=== PATIENT | male | born 1945 | race Caucasian/White ===

== ENCOUNTER → 2017-01-24 | Outpatient (CLI) | payer OTHER ==
[~2017-01-24] MED LIST: ASPIRIN325 PO; HYDROCHLOROTHIA25 M2 PO; SIMVASTATIN40 MG PO; VERAPAMIL ER180 M1 PO; WELLBUTRIN XL300 MG PO
== END ==
LOC: RAD 16:47
DX: M25.512 Pain in left shoulder (principal)

== ENCOUNTER → 2018-05-15 | Outpatient (CLI) | payer OTHER | LOC: RAD 09:20 | DX: M47.816 Spondylosis without myelopathy or radiculopathy, lumbar region (principal); M51.36 Other intervertebral disc degeneration, lumbar region; M48.061 Spinal stenosis, lumbar region without neurogenic claudication; I70.0 Atherosclerosis of aorta ==

== ENCOUNTER 2018-06-29 06:08 | Inpatient (IN) | payer OTHER ==
[~2018-06-29] VITALS: Ht 190.5 cm; Wt 122.5 kg
[~2018-06-29 06:08] MED LIST changes: +CENTRUM SILVER1 EAC2 PO; +FISH OIL 1,001000 M2 PO; +NORVASC10 MG PO; +SUPER B-50 COM1 EACH PO; +TURMERIC500 M2 PO
[2018-06-29 09:00] LABS: URINE BILIRUBIN NEGATIVE (Negative); URINE BLOOD TRACE (Negative); URINE CLARITY CLEAR; URINE COLOR YELLOW; URINE GLUCOSE-RANDOM* NEGATIVE (Negative); URINE KETONES NEGATIVE (Negative); URINE LEUKOCYTES-REFLEX NEGATIVE (Negative); URINE NITRITE-REFLEX NEGATIVE (Negative); URINE PROTEIN (DIPSTICK) NEGATIVE (Negative); URINE SPECIFIC GRAVITY 1.025 (1.005-1.035); URINE UROBILINOGEN 0.2 E.U./dl (0.2-1.0)
[2018-06-29 09:00] LABS: HEMATOCRIT 43.3 % (42.0-52.0); HEMOGLOBIN 15.2 gm/dL (14.0-18.0); MCH 32.8 pg (26.0-34.0); MCHC 35.1 g/dL (28.0-37.0); MCV 93.6 fL (80.0-100.0); RBC 4.63 mil/uL (4.50-6.00); RDW 13.1 % (10.5-14.5); WBC 8.9 thou/uL (4.0-11.0)
[2018-06-29 09:07] LABS: ALBUMIN 3.7 g/dL (3.4-5.0); CALCIUM 8.9 mg/dL (8.5-10.1); CREATININE 1.4 mg/dL (0.7-1.3)
[2018-06-29 09:12] LABS: INR 1.1
--- NOTE | 2018-06-29 09:18 | EKG ---
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 : 1945 Requested By: Marino Velez Order Number: [id number] MD: Rashad Chow Measurements Intervals [place] Rate: 78 P: 40 MI: 208 QRS: -24 QRSD: 100 T: 67 QT: 391 QTc: 446 Interpretive Statements Sinus rhythm Borderline left axis deviation Abnormal R-wave progression, late transition Compared to ECG 04/08/2014 08:39:16 No significant changes Electronically Signed On 06-29-2018 9:18:20 CDT by Rashad Chow [email or web address] ��������������������������������������������� <ELECTRONICALLY SIGNED> ���������������������������������������� By: Rashad Chow MD, [facility] ��������������������������������������������� 06/29/18 0918 9 9 Rashad Chow MD, [facility] /EPI
[2018-07-08 11:10] VITALS: BP 144/77
--- NOTE | 2018-07-08 16:01 | O ---
Formerly [facility] [place] [address] OPERATIVE REPORT Name: PAKO RODRIGUEZ Room #: 150-4 ADM IN M.R.#: [id number] Admission: 07/08/18 ������������������ Attend Phys: Marino Velez MD Discharge: ������������������ Date of : 47 Report #: [id number] THIS REPORT FOR: //name// CC: Ro Oscar Velez DATE OF SERVICE: 07/08/2018 PREOPERATIVE DIAGNOSIS: Right knee medial compartment osteoarthritis. POSTOPERATIVE DIAGNOSIS: Right knee medial compartment osteoarthritis. PROCEDURE: Right medial compartment knee arthroplasty with Navio robotic assistance. SURGEON: Marino Velez MD. SAND POLISHER: Josephine Edwards PA-C INDICATION FOR SAND POLISHER: Throughout the case, extensive retraction and manipulation of knee was required. This was afforded to me by my financial services assistant. ANESTHESIA: LMA with an adductor canal block. IMPLANTS: Shen and Nephew size 5 Journey medial compartment femoral component, size 3 tibia, size 9 polyethylene. TOURNIQUET TIME: 61 minutes. ESTIMATED BLOOD LOSS: 25 mL. COMPLICATIONS: None. SPECIMENS: None. CONDITION UPON LEAVING THE OPERATING ROOM: Stable. INDICATIONS FOR PROCEDURE: The patient is a 72-year-old gentleman with severe right knee medial compartment osteoarthritis. He had failed conservative measures for this and after discussion with him, he elected for right unicompartmental knee arthroplasty. DESCRIPTION OF PROCEDURE: Risks, benefits, alternatives and complications were discussed in detail with the patient including but not limited to risk of anesthesia, risk of damage to nerves, arteries, blood vessels, risk for infection, bleeding, risk for continued knee pain, need for reoperation. Formerly [facility] [address] [place] [address] OPERATIVE REPORT Name: PAKO RODRIGUEZ Room #: 150-4 ADM IN M.R.#: [id number] Admission: 07/08/18 ������������������ Attend Phys: Marino Velez MD Discharge: ������������������ Date of : 47 Report #: [id number] Informed consent was obtained from the patient. Right knee was appropriately marked in the preoperative holding area. IV Ancef was given for preoperative antibiotics. He was brought to the operating room and placed in the supine position on the operating room table. LMA anesthesia was induced without complication. Tourniquet was placed on the right thigh. Right lower extremity was prepped and draped in normal sterile fashion. Right lower extremity was exsanguinated, tourniquet was inflated. Tourniquet time was 61 minutes. Standard approach to the medial compartment was made with #10 blade through the skin. Dissection was taken down sharply to the fascia and deep flaps were developed medially and laterally. Fresh #10 blade was used to make a medial parapatellar arthrotomy and the knee was inspected. There was severe medial compartment osteoarthritis. Lateral compartment was well maintained and a grade 2 chondromalacia of the patella. It was decided to proceed with uni-knee arthroplasty. Reference pins were placed in the femur and the tibia and the knee was digitally mapped using the [employer] robotic system. We sized a size 5 femur and a size 3 tibia with a 9 polyethylene. After acceptance of the intraoperative plan, the femoral cut was made with a Navio sandie. Tibial resection was also made with a Navio bur. Remainder of the meniscus was removed with Bovie cautery. A size 3 tibial trial was placed, pinned and drilled. A size 5 femoral trial was placed and then this was then trialed with a size 8 and then a size 9 polyethylene. Size 9 polyethylene demonstrated 1-2 mm of laxity throughout range of motion medially. After this, trial components were removed. Bony ends were thoroughly irrigated with normal saline. A final size 3 tibia, size 5 Journey medial compartment Oxinium component were cemented in place using standard cementation techniques. While the cement cured, a periarticular injection consisting of morphine, ropivacaine, epinephrine and Toradol was placed around the knee joint capsule. After the cement cured, tourniquet was deflated. Hemostasis was obtained with Bovie cautery. A final size 9 polyethylene was placed. The knee was thoroughly irrigated with normal saline. A gram of vancomycin was placed deep in the joint. Fascia was closed with 0 Vicryl, skin was closed with 2-0 Vicryl, 3-0 Monocryl and a MARIANA dressing was applied. The patient tolerated this procedure well and went to the recovery room under care of Anesthesia postoperatively. ��������������������������������������������� <ELECTRONICALLY SIGNED> ���������������������������������������� By: Marino Velez MD ��������������������������������������������� 07/08/18 1601 1413 1428 Marino Velez MD /nt
[2018-07-08 17:18] VITALS: BP 134/68
[2018-07-08 20:13] VITALS: BP 142/65
[2018-07-09 04:20] VITALS: BP 131/70
[2018-07-09 04:53] LABS: HEMATOCRIT 39.4 % (42.0-52.0); HEMOGLOBIN 13.7 gm/dL (14.0-18.0); MCH 32.3 pg (26.0-34.0); MCHC 34.8 g/dL (28.0-37.0); MCV 92.7 fL (80.0-100.0); RBC 4.24 mil/uL (4.50-6.00); RDW 12.9 % (10.5-14.5); WBC 15.8 thou/uL (4.0-11.0)
[2018-07-09 08:33] VITALS: BP 118/66
--- NOTE | 2018-07-09 10:50 | NUR ---
PT A&OX4, AMBULATES WITH STANDBY AND WALKER. IV INTACT IN R HAND. PT NAUSEATED DURING SHIFT REPORT THIS AM. ZOFRAN IV GIVEN, WILL CONT TO MONITOR.
--- NOTE | 2018-07-09 12:41 | NUR ---
ASSESSMENT-PT LIVES AT HOME WITH HIS WHO IS IN GOOD HEALTH AND ABLE TO ASSIST HIM AT HOME. THEY HAVE 3 CHILDREN IN THE AREA THAT CAN ASSIST IF NEEDED. BOTH PT AND DRIVE. PRIOR TO ADMISSION PT HAD BEEN OFF WORK. 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 PT PLANS TO GO FOR OUTPT THERAPY AT [facility]. PT NEEDS A ROLLER WALKER FOR HOME. WILL ASK DC RUG DYER HELPER TO ARRANGE FOR ROLLER WALKER FOR DC.
[2018-07-09] MEDS ORDERED: PERCOCET PO (13:01)
[2018-07-09] MEDS ORDERED: MS CONTIN15 MG PO (13:01)
[2018-07-09] MEDS ORDERED: TRI-BUFFERED A325 M1 PO (13:02)
[2018-07-09] MEDS ORDERED: NEURONTIN 300300 M1 PO (13:02)
--- NOTE | 2018-07-09 13:10 | NUR ---
DISCHARGE PLANNING. PATIENT IN NEED OF ROLLER WALKER FOR HOME USE. CLINICAL INFORMATION, ROLLER WALKER RX AND FACESHEET FAXED TO [facility]. VERIFIED ALL RECEIVED. FINN TO FACILITATE PATIENTS ROLLER WALKER NEEDS AND WILL DELIVER TO PATIENTS BEDSIDE TODAY.
[2018-07-09 13:40] VITALS: BP 118/66
[2018-07-09 13:52] VITALS: BP 118/66
--- NOTE | 2018-07-09 14:07 | NUR ---
DC ORDERS RECEIVED. DC INSTRUCTIONS AND F/U APPOINT REVEIWED WITH PT. SCRIPTS GIVEN TO PT PRIOR TO ADMISSION. IV REMOVED FROM R HAND. PT WAITING FOR WALKER TO ARRIVE HERE AT HOSPITAL PRIOR TO DC.
== END 2018-07-09 15:04 | disposition home or self-care (01) | DRG 470 ==
LOC: PRE 06:08 → TBA 06:08 → 4E 07-08 05:30 → PRE 07-08 08:55 → 4E 07-08 16:43 → ENTRNSPT 07-09 14:47 → 4E 07-09 15:04
PROVIDERS: ADMIT Orthopaedic Surgery
DX: M17.11 Unilateral primary osteoarthritis, right knee (principal); Z79.82 Long term (current) use of aspirin; Z79.899 Other long term (current) drug therapy
CPT/HCPCS: 10783; 50010; 50101; 50415; 50954; 51130; 51225; 53078; 53370; 54118; 56527; 56528; 57095; 57103; 57109; 57110; 57113; 62110; 62900; 70005

== ENCOUNTER 2019-06-25 05:47 | Day surgery (SDC) | payer OTHER ==
[2019-06-25] VITALS (14 sets, daily range): BP systolic 120–139; BP diastolic 70–82
[~2019-06-25] VITALS: Ht 190.5 cm; Wt 121.6 kg
[~2019-06-25 05:47] MED LIST changes: +AMLODIPINE BESY10 MG PO; +ATORVASTATIN CA10 MG PO; +FISH OIL 1,2001 EAC3 PO; +MS CONTIN15 MG PO; +NEURONTIN 300300 M1 PO; +NEURONTIN300 MG PO; +PERCOCET PO; +TRI-BUFFERED A325 M1 PO
[2019-06-25 06:59] LABS: CALCIUM 8.5 mg/dL (8.5-10.1); CREATININE 1.5 mg/dL (0.7-1.3)
[2019-06-25 07:11] LABS: POTASSIUM 3.4 mmol/L (3.5-5.1)
--- NOTE | 2019-06-25 08:07 | EKG ---
[facility] [place] [address] ELECTROCARDIOGRAM REPORT Name: PAKO RODRIGUEZ Room #: [facility].#: [id number] Admission: 06/25/19 Attend Phys: Yaw Mcnally MD Discharge: Date of : 47 Report #: [id number] THIS REPORT FOR: cc: Ro Moore DNP, Mary E. DNP Lundgren, Craig H. 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1945 Requested By: Yaw Mcnally Order Number: [id number] MD: Rashad Chow Measurements Intervals [place] Rate: 73 P: 36 VT: 218 QRS: -17 QRSD: 105 T: 53 QT: 411 QTc: 453 Interpretive Statements Sinus rhythm Borderline prolonged VT interval Compared to ECG 06/29/2018 08:50:38 No significant changes Electronically Signed On 06-25-2019 8:06:27 CLOTHER IN by Rashad Chow [email or web address] <ELECTRONICALLY SIGNED> By: Rashad Chow MD, [facility] 06/25/19805 7 7 Rashad Chow MD, [facility] /EPI
--- NOTE | 2019-06-25 16:28 | NUR ---
Chart reviewed and case discussed with the care team. Tennis Net Maker visited with the pt and his at bedside. He is s/p lumbar lami and currently on bedrest. He is anticipating dc home tomorrow pending his progress. Therapy to eval him in the am. He reports that he was indep with gait and adl's prior to admission. His is supportive and can assist with IADL's and adl's as needed. He may have a used rollar walker if needed at dc. Discussed getting a script from the surgeon should he need a new one at dc over the weekend. Pt and spouse deny any dc needs or concerns. Pt is anticipated to dc home with outpt f/u.
--- NOTE | 2019-06-25 18:24 | NUR ---
Pt came up from revocery room approx 1025. Pt states pain is controlled with the ice pack. Dressing c/d/i. Hemovac drain in place. Pt bedrest until am. Voids in the urinal. IVF infusing. Family at bedside. Call light within reach. Will continue to monitor.
--- NOTE | 2019-06-26 01:10 | NUR ---
PT C/O PAIN ON HIS BACK,MANAGED WITH MED.PT UP WITH SBA TO THE BR.PT IS A FALL RISK BUT PT NOT COMPLIANT WITH FALL PRECAUTIONS.DRSG ON HIS BACK C/D/I WITH HEMOVAC IN PLACE.PT ABLE TO MAKE HIS NEEDS KNOWN.FALL PRECAUTIONS IN PLACE,CALL LIGHT WITHIN REACH.
[2019-06-26 04:20] VITALS: BP 132/66
--- NOTE | 2019-06-26 07:34 | O ---
[facility] [place] [address] OPERATIVE REPORT Name: PAKO RODRIGUEZ Room #: 441-P [facility]#: [id number] Admission: 06/25/19 Attend Phys: Yaw Mcnally MD Discharge: Date of : 47 Report #: [id number] THIS REPORT FOR: cc: Ro Moore DNP, Mary E. DNP Clymer, David J. MD ~ CC: Yaw Moore DATE OF SERVICE: 06/25/2019 PREOPERATIVE DIAGNOSIS: Lumbar spinal stenosis at L3-L4 level. POSTOPERATIVE DIAGNOSIS: Lumbar spinal stenosis at L3-L4 level. PROCEDURE: Decompressive laminectomy for spinal stenosis, L3-L4 levels. SURGEON: Yaw Mcnally MD INDICATIONS: This heavy, deconditioned 73-year-old gentleman has had previous lumbar laminectomy and diskectomy in the distant past. I believe at L4-L5 and L5-S1 levels. Now, he has progressive bilateral leg pain with some numbness and weakness and mild left-sided footdrop. Clinical exam is suggestive of radiculopathy and MRI study reveals rather significant spinal stenosis at the L3-L4 level. We discussed treatment options and elected to go ahead with surgical decompression. DESCRIPTION OF PROCEDURE: The patient was taken to the operating room where he was placed under general anesthesia. Prophylactic intravenous antibiotics were administered. He was turned to the prone position. The low back was meticulously prepped and draped. C-arm was brought into the field to localize the appropriate level. A skin incision was made overlying the L3-L4 level extending distally into the old surgical scar. The dissection was carried through subcutaneous tissues and fascia and the paraspinal muscles were dissected out laterally exposing the lamina of L3 and L4. The spinous process of L3 and L4 were excised. A complete laminectomy at L3 was performed. The laminectomy was extended through most of L4 until the canal seemed to open up nicely. It was also extended proximally up into L2 slightly where the canal also seemed to be widely open. There was some significant canal narrowing in the mid portion. This was related to facet hypertrophy and significant hypertrophy of ligamentum. The disk was found to be bulging, but without disk herniation. I did not feel that a formal diskectomy would be necessary or helpful. A satisfactory decompression was accomplished. C-arm was used to confirm that I was at the appropriate level with a marker at L2 well above the stenosis and another marker at L4 below the area of stenosis. This was confirmed with the radiologist during the procedure. [address] [address] OPERATIVE REPORT Name: PAKO RODRIGUEZ Room #: 441-P REG [facility]#: [id number] Admission: 06/25/19 Attend Phys: Yaw Mcnally MD Discharge: Date of : 46 Report #: [id number] I felt there is a satisfactory decompression of the area of stenosis. There is obviously some facet hypertrophy and some degenerative change above and below this area, which may cause some ongoing back discomfort, but I think the canal seemed to be opened nicely. The dura is intact. The nerve root seemed to be freed up. The wound was copiously irrigated. Good hemostasis was established. A small sheet of Gelfoam and thrombin were placed over the exposed dura. The muscle layer was closed and the fascia layer was closed with #1 Vicryl sutures. A single Hemovac was left in the wound, placing this above the fascia with the tail of the drain extending distally below the fascia to decompress any postoperative hematoma in this region. The subcutaneous tissues were closed with 0 Monocryl. The skin was closed with skin renu. A sterile dressing was applied. The patient was awakened and returned to recovery room in good condition. <ELECTRONICALLY SIGNED> By: Yaw Mcnally MD 06/26/19 0734 0931 0946 Yaw Mcnally MD /nt
[2019-06-26 08:07] VITALS: BP 132/66
[2019-06-26 08:56] VITALS: BP 132/66
[2019-06-26 09:25] VITALS: BP 132/66
--- NOTE | 2019-06-26 09:30 | NUR ---
IV ACSESS DCD HEMO VAC DCD. PT'S DISCHARGE PAPERS GONE OVER SIGNED AND COPY IN CHART. RX GIVEN TO PATIENT FOR PRN PAIN MED. SUPPLIES SENT WITH PATIENT FOR DRESSING FROM HEMOVAC DCD. ALL BELONGINGS PACKED AND SENT WITH PATIENT. PT TAKEN VIA W/C TO MAIN ENTRANCE AND FAMILY CAR. SPOUSE HERE TO TAKE PATIENT HOME.
--- NOTE | 2019-06-28 10:14 | D ---
[facility] [place] [address] DISCHARGE SUMMARY Name: PAKO RODRIGUEZ Room #: DEP [facility].#: [id number] Admission: 06/25/19 Attend Phys: Yaw Mcnally MD Discharge: 06/26/19 Date of : 47 Report #: [id number] THIS REPORT FOR: cc: Ro Moore DNP, Mary E. DNP Clymer, David J. MD ~ THIS REPORT FOR: //name// CC: Yaw Moore DATE OF SERVICE: 06/26/2019 FINAL DIAGNOSIS: Lumbar spinal stenosis with radiculopathy. OPERATIONS AND PROCEDURES: Decompressive lumbar laminectomy for spinal stenosis. HISTORY: This heavy 73-year-old gentleman presents with rather severe chronic progressive back pain with some associated bilateral leg pain and numbness. He has intermittent mild foot drop weakness. Findings are consistent with radiculopathy and preoperative MRI study confirms rather significant lumbar spinal stenosis, principally at the L3-L4 level. We discussed treatment options and elected to go ahead with surgical decompression. HOSPITAL COURSE: The patient was admitted and taken to the operating room on 06/24. He underwent a lumbar laminectomy for decompression of spinal stenosis, principally at the L3 and L4 levels. Significant stenosis was noted with significant improvement at the conclusion of his procedure. Postoperatively, he was monitored overnight and a single Hemovac drain left in the wound. Output was rather limited at about 60 mL. The drain is removed on the first postoperative day. He is able to resume a regular diet. He has already been up and ambulating with limited assistance and feels reasonably safe and strong. He notes that his leg pain and numbness are already markedly improved. He does have moderate back pain, but this is manageable. He notes that he prefers not to use pain medication and is anxious for hospital discharge home today. DISCHARGE MEDICATIONS: Include hydrochlorothiazide 25 mg daily, aspirin 325 mg daily, Wellbutrin 300 mg daily, Norvasc 10 mg daily, multivitamin once daily, atorvastatin 10 mg daily, gabapentin 300 mg b.i.d. He will continue gentle protected activity and ambulation at home. He will use a cane or walker if necessary. He notes he already has pain medication at home, which he can use on an as needed basis if symptoms require. I have asked him to [address] [address] DISCHARGE SUMMARY Name: PAKO RODRIGUEZ [id number] Admission: 06/25/19 Attend Phys: Yaw Mcnally MD Discharge: 06/26/19 Date of : 47 Report #: [id number] call me if any problems or questions. We will plan to see him back in the office in about 5 days for his initial postoperative visit. <ELECTRONICALLY SIGNED> By: Yaw Mcnally MD 06/28/19 1014 0739 0749 Yaw Mcnally MD /sabrina
== END 2019-06-26 09:20 | disposition home or self-care (01) ==
LOC: OR 05:47 → TBA 09:29 → 4S 09:38 → OR 11:25
PROVIDERS: Orthopaedic Surgery
DX: M48.061 Spinal stenosis, lumbar region without neurogenic claudication (principal); M51.26 Other intervertebral disc displacement, lumbar region; I10 Essential (primary) hypertension; E78.5 Hyperlipidemia, unspecified; F32.9 Major depressive disorder, single episode, unspecified; G47.30 Sleep apnea, unspecified; Z98.890 Other specified postprocedural states; Z79.899 Other long term (current) drug therapy; Z87.891 Personal history of nicotine dependence; Z79.82 Long term (current) use of aspirin
CPT/HCPCS: 10102; 50010; 50101; 50402; 50704; 50850; 52255; 56525; 62110; 62900; 70005

== ENCOUNTER → 2020-03-09 | Outpatient (CLI) | payer OTHER ==
[~2020-03-09] MED LIST changes: +CO-ENZYME Q-1010 MG PO
== END ==
LOC: LAB 13:39
PROVIDERS: ATTEND Orthopaedic Surgery
DX: Z01.812 Encounter for preprocedural laboratory examination (principal); Z20.828 Contact with and (suspected) exposure to other viral communicable diseases

== ENCOUNTER 2020-03-13 06:02 | Day surgery (SDC) | payer OTHER ==
[2020-02-28 11:07] LABS: HEMATOCRIT 44.1 % (42.0-52.0); HEMOGLOBIN 15.1 gm/dL (14.0-18.0); MCHC 34.4 g/dL (28.0-37.0); MCV 96.2 fL (80.0-100.0); RBC 4.58 mil/uL (4.50-6.00); RDW 13.1 % (10.5-14.5); WBC 8.4 thou/uL (4.0-11.0)
[2020-02-28 11:10] LABS: URINE BILIRUBIN NEGATIVE (Negative); URINE BLOOD NEGATIVE (Negative); URINE CLARITY CLEAR; URINE COLOR YELLOW; URINE GLUCOSE-RANDOM* NEGATIVE (Negative); URINE KETONES NEGATIVE (Negative); URINE LEUKOCYTES-REFLEX NEGATIVE (Negative); URINE NITRITE-REFLEX NEGATIVE (Negative); URINE PROTEIN (DIPSTICK) NEGATIVE (Negative); URINE SPECIFIC GRAVITY 1.025 (1.005-1.035); URINE UROBILINOGEN 0.2 E.U./dl (0.2-1.0)
[2020-02-28 11:20] LABS: ALBUMIN 3.9 g/dL (3.4-5.0); CALCIUM 8.9 mg/dL (8.5-10.1); CREATININE 1.5 mg/dL (0.7-1.3); POTASSIUM 3.9 mmol/L (3.5-5.1); PROTIME 10.7 Seconds (9.3-11.4)
[~2020-03-13] VITALS: Ht 190.5 cm; Wt 124.3 kg
[2020-03-13 08:25] VITALS: BP 145/87
[2020-03-13 11:32] VITALS: BP 156/88
[2020-03-13 11:45] VITALS: BP 143/91
[2020-03-13 12:15] VITALS: BP 135/79
--- NOTE | 2020-03-13 12:17 | NUR ---
ASSUMED CARE AT 1130. PT IS A&O X4. PT DENIES ANY PAIN ON KNEE OR ANYWHERE ELSE. PT IS REGULAR DIET. PT HAS IV RIGH HAND AND HAS FLUIDS RUNNING AT 100 ML. IV SHOWS NO SIGNS OF SWELLING OR REDNESS. PT DENIES N/V/D, SOA. MISHEL/SCD ARE IN PLACE. POLAR CARE IS IN PLACE. FALL PRECAUTION. CALL LIGHT WITHIN REACH. VSS. WILL CONTINUE TO MONITOR FOR PAIN
[2020-03-13 15:38] VITALS: BP 156/88
--- NOTE | 2020-03-14 12:40 | O ---
[place] [address] OPERATIVE REPORT Name: PAKO RODRIGUEZ Room #: DEP [facility] MMisbah.#: [id number] Admission: 03/13/20 Attend Phys: Marino Velez MD Discharge: 03/13/20 Date of : 47 Report #: [id number] THIS REPORT FOR: cc: Ro Moore DNP, Mary E. DNP Abraham, Scott M. MD ~ CC: Ro Velez DATE OF SERVICE: 03/13/2020 PREOPERATIVE DIAGNOSIS: Left knee medial compartment osteoarthritis. POSTOPERATIVE DIAGNOSIS: Left knee medial compartment osteoarthritis. PROCEDURE: Left unicompartmental knee arthroplasty using Navio robotic assistance. SURGEON: Marino Velez MD SENIOR ANDROID SOFTWARE ENGINEER: Josephine Edwards PA-C INDICATIONS FOR SENIOR ANDROID SOFTWARE ENGINEER: Throughout the case, extensive retraction and manipulation of the knee was required. This was afforded to me by my physiotherapist's assistant. ANESTHESIA: LMA with an adductor canal block. IMPLANTS: Shen and Nephew size 7 Journey II BCS Oxinium medial femoral component, a size 4 tibia and a size 9 polyethylene. TOURNIQUET TIME: 43 minutes. ESTIMATED BLOOD LOSS: 25 mL. COMPLICATIONS: None. SPECIMENS: None. CONDITION UPON LEAVING THE OPERATING ROOM: Stable. INDICATIONS FOR PROCEDURE: The patient is a 74-year-old gentleman with left knee medial compartment osteoarthritis. He had failed conservative measures for this and after discussion with him, he elected for medial compartment knee arthroplasty. DESCRIPTION OF PROCEDURE: Risks, benefits, alternatives, and complications were [facility] [address] [address] OPERATIVE REPORT Name: PAKO RODRIGUEZ Room #: DEP [facility] Maria Esther#: [id number] Admission: 03/13/20 Attend Phys: Marino Velez MD Discharge: 03/13/20 Date of : 47 Report #: [id number] discussed in detail with the patient including but not limited to risk of anesthesia, risk of damage to nerves, arteries, blood vessels, risk for infection, bleeding, risk for continued knee pain, and need for reoperation. Informed consent was obtained from the patient. Left knee was appropriately marked in the preoperative holding area. IV Ancef was given for preoperative antibiotics. He was brought to the operating room and placed in supine position on the operating room table. LMA anesthesia was induced without complication. Tourniquet was placed on the left thigh. Left lower extremity was prepped and draped in normal sterile fashion. Timeout was performed properly identifying the patient and procedure as well as the instrumentation and implants. All in the operating room were in agreement. Left lower extremity was exsanguinated, tourniquet was inflated. Tourniquet time was 43 minutes. Standard approach to the medial knee was made with 10 blade through the skin. Dissection was taken down sharply to the fascia and deep flaps were developed medially and laterally. Fresh 10 blade was used to make a medial parapatellar arthrotomy and the knee was inspected. There was [id number]-ig-muogko medial compartment osteoarthritis. ACL was intact. Lateral compartment was well maintained. Patellofemoral compartment demonstrated grade 2 chondromalacia. It was decided to proceed with unicompartmental knee arthroplasty. Reference pins were placed in the femur and the tibia. The knee was digitally mapped using the [employer] robotic system. We sized the size 7 femur with a size 4 tibia and a 9 spacer. After acceptance of the intraoperative plan, the femoral and tibial resections were made with a Navio bur. The medial meniscus was removed with Bovie cautery. Tibia was sized, found to be a size 4. Size 4 tibial trial was placed, pinned and drilled. A size 7 femoral trial was placed. This was then trialed with a size 8 and then a size 9 polyethylene. Size 9 polyethylene demonstrated 1 mm laxity medially throughout range of motion of the knee. Trial components were removed. Bony ends were thoroughly irrigated with normal saline. A final size 4 tibia, size 7 Journey II BCS Oxinium medial femoral component were cemented in place using standard cementation techniques. While the cement cured, a periarticular injection consisting of morphine, ropivacaine, epinephrine and Toradol was placed around the knee joint capsule. After the cement cured, the tourniquet was deflated. Hemostasis was obtained with Bovie cautery. Final size 9 polyethylene was placed. A gram of vancomycin was placed deep in the joint. Fascia was closed with 0 Vicryl, skin was closed with 2-0 Vicryl, 3-0 Monocryl, Dermabond and a MARIANA dressing was applied. The patient tolerated this procedure well and went to recovery room under care of anesthesia postoperatively. <ELECTRONICALLY SIGNED> By: Marino Velez MD 03/14/20 1240 0704 0730 Marino Velez MD /sabrina
== END 2020-03-13 16:23 | disposition home or self-care (01) ==
LOC: OR 06:02 → 4S 10:53 → OR 13:11
PROVIDERS: ATTEND Orthopaedic Surgery
DX: M17.12 Unilateral primary osteoarthritis, left knee (principal); M25.562 Pain in left knee; I10 Essential (primary) hypertension; E78.5 Hyperlipidemia, unspecified; F32.9 Major depressive disorder, single episode, unspecified; G47.30 Sleep apnea, unspecified; Z98.890 Other specified postprocedural states; Z79.899 Other long term (current) drug therapy; Z87.442 Personal history of urinary calculi; Z87.891 Personal history of nicotine dependence; Z96.651 Presence of right artificial knee joint; Z98.42 Cataract extraction status, left eye
CPT/HCPCS: 10102; 50010; 50101; 50415; 50954; 51130; 51225; 51320; 52001; 52282; 53078; 53370; 54118; 56527; 56528; 57095; 57103; 57110; 57127; 57180; 62110; 62900; 64042; 70005

== ENCOUNTER 2020-03-15 18:10 | Emergency (ER) | payer OTHER ==
[~2020-03-15] VITALS: Ht 190.5 cm; Wt 117.9 kg
[2020-03-15 21:07] LABS: ABSOLUTE NEUTROPHILS 12.1 thou/uL (1.4-8.2); BASOPHILS 0.3 % (0.0-2.0); EOSINOPHILS 0.6 % (0.0-3.0); HEMATOCRIT 43.6 % (42.0-52.0); HEMOGLOBIN 14.8 gm/dL (14.0-18.0); LYMPHOCYTES 15.7 % (24.0-44.0); MCH 32.7 pg (26.0-34.0); MCHC 33.9 g/dL (28.0-37.0); MCV 96.5 fL (80.0-100.0); MONOCYTES 8.3 % (1.0-8.0); PLATELET COUNT 289 thou/uL (150-400); POLYS 75.1 % (36.0-66.0); RBC 4.51 mil/uL (4.50-6.00); RDW 13.2 % (10.5-14.5); WBC 16.1 thou/uL (4.0-11.0)
[2020-03-15 21:33] LABS: CALCIUM 9.2 mg/dL (8.5-10.1); CREATININE 1.5 mg/dL (0.7-1.3); POTASSIUM 3.8 mmol/L (3.5-5.1)
[2020-03-15 21:40] LABS: TOTAL BILIRUBIN 0.8 mg/dL (0.2-1.0); TOTAL PROTEIN 7.7 g/dL (6.4-8.2)
[2020-03-15 22:20] VITALS: BP 161/83
== END 2020-03-15 22:28 | disposition home or self-care (01) ==
LOC: ER 18:10
PROVIDERS: Physician Assistant
DX: M25.562 Pain in left knee (principal); R60.0 Localized edema; E78.5 Hyperlipidemia, unspecified; I10 Essential (primary) hypertension; F32.9 Major depressive disorder, single episode, unspecified; Z98.890 Other specified postprocedural states; Z87.442 Personal history of urinary calculi; Z79.899 Other long term (current) drug therapy; Z96.652 Presence of left artificial knee joint

== ENCOUNTER → 2021-01-18 | Outpatient (CLI) | payer OTHER | LOC: SJCVCIMAG 07:53 | PROVIDERS: ATTEND Nurse Practitioner | DX: I73.9 Peripheral vascular disease, unspecified (principal); M79.605 Pain in left leg; M79.604 Pain in right leg; E11.9 Type 2 diabetes mellitus without complications; Z87.891 Personal history of nicotine dependence; Z72.89 Other problems related to lifestyle; Z79.82 Long term (current) use of aspirin; Z79.899 Other long term (current) drug therapy; Z79.84 Long term (current) use of oral hypoglycemic drugs ==